=== PATIENT | female | born 1990 | race African-American/Black ===

== ENCOUNTER → 2021-03-27 | Outpatient (CLI) | payer OTHER ==
--- NOTE | 2021-03-27 16:30 | RAD ---
CT of the sinuses without contrast HISTORY: Possible sinusitis. Possible turbinate hypertrophy/inflammation COMPARISON: None Technique: Multidetector CT imaging of the paranasal sinuses performed without contrast. FINDINGS: Noncontrast enhanced evaluation of the globes and orbits is unremarkable. No acute fluid le vels within the paranasal sinuses are identified. No significant mucosal thickening within the parana mia sinuses are identified. No hypertrophic or erosive osseous changes are identified. Ostiomeatal un its appear to be patent bilaterally. Visualized intracranial contents are unremarkable. IMPRESSION: No evidence of acute or chronic sinusitis is identified CT DOSING PQRS STATEMENT: One or more of the following individualized dose reduction techniques were utilized for this examinat ion: 1. Automated exposure control 2. Adjustment of the mA and/or kV according to patient size 3. Use of iterative reconstruction technique Electronically signed by: Petar Melo MD (03/27/2021 4:27 PM) [id number]
== END ==
LOC: CT 14:42
PROVIDERS: ATTEND Otolaryngology
DX: J34.3 Hypertrophy of nasal turbinates (principal); R51.9 Headache, unspecified
CPT/HCPCS: 70486

== ENCOUNTER 2021-05-24 13:27 | Emergency (ER) | payer OTHER ==
[~2021-05-24] VITALS: Ht 157.5 cm; Wt 71.3 kg
[2021-05-24 13:46] VITALS: BP 119/71
[2021-05-24] MEDS ORDERED: KETOROLAC 15 MG/ML VIAL. IVP ONE (14:15)
[2021-05-24] MEDS ORDERED: IV NORMAL SALINE 1,000ML 1,000 ML IV ONE (14:15)
[2021-05-24] MEDS ORDERED: METOCLOPRAMIDE HCL 10 MG/2 ML VIAL. IVP ONE (14:15)
[2021-05-24 14:31] LABS: BASO # 0.1 x10^3/uL (0.0-0.2); BASO % 1 % (0-3); EOS # 0.1 x10^3/uL (0.0-0.7); EOS % 1 % (0-3); HEMATOCRIT 38.8 % (36.0-47.0); HEMOGLOBIN 13.2 g/dL (12.0-15.5); LYMPH # 2.3 x10^3/uL (1.0-4.8); LYMPH % 34 % (24-48); MEAN CORPUSCULAR HEMOGLOBIN 30 pg (25-35); MEAN CORPUSCULAR HGB CONC 34 g/dL (31-37); MEAN CORPUSCULAR VOLUME 89 fL (79-100); MONO # 0.5 x10^3/uL (0.0-1.1); MONO % 7 % (0-9); NEUT # 3.9 x10^3uL (1.8-7.7); NEUT % 57 % (31-73); PLATELET COUNT 232 x10^3/uL (140-400); RED BLOOD COUNT 4.38 x10^6/uL (3.50-5.40); RED CELL DISTRIBUTION WIDTH 13.2 % (11.5-14.5); WHITE BLOOD COUNT 6.8 x10^3/uL (4.0-11.0)
--- NOTE | 2021-05-24 14:41 | RAD ---
EXAM: Abdomen and pelvis CT without intravenous contrast. HISTORY: Left flank pain. TECHNIQUE: Computed tomographic images of the abdomen and pelvis were obtained without contrast. Mult iplanar reformatting was performed. *One or more of the following individualized dose reduction techniques were utilized for this examina tion: 1. Automated exposure control. 2. Adjustment of the mA and/or kV according to patient size. 3. Use of iterative reconstruction technique. COMPARISON: None. FINDINGS: Evaluation of the lower thorax is unremarkable. No hepatic lesion is seen. The stomach is d istended with recently ingested bolus. The gallbladder, pancreas, spleen and adrenal glands are unrem arkable. There is no nephroureterolithiasis or hydronephrosis. No solid or cystic lesion is seen on t his noncontrast exam. The urinary bladder wall is thickened, likely due to relative under distention. The appendix is absent. There is moderate colonic stool. There is a small amount of pelvic free flui d, a nonspecific finding. The uterus is absent. There is diastasis of the ventral abdominal wall musc ulature at the level of the umbilicus. There is no suspicious osseous lesion. IMPRESSION: 1. No evidence of nephrolithiasis or hydronephrosis. 2. Small amount of nonspecific pelvic free fluid. Electronically signed by: Gaby Ledezma MD (05/24/2021 2:39 PM) [id number]
[2021-05-24 14:44] LABS: CREATININE 0.9 mg/dL (0.6-1.0); GFR 87.8; POTASSIUM 4.5 mmol/L (3.5-5.1)
[2021-05-24 14:45] LABS: BILIRUBIN,URINE NEG (NEG); CLARITY,URINE CLEAR; COLOR,URINE YELLOW; GLUCOSE,URINE NEG (NEG); NITRITE,URINE NEG (NEG); UROBILINOGEN,URINE 0.2 mg/dL (0.2 mg/dL)
[2021-05-24 14:49] LABS: ALBUMIN 4.3 g/dL (3.4-5.0); ALBUMIN/GLOBULIN RATIO 1.2 (1.0-1.7); TOTAL BILIRUBIN 0.8 mg/dL (0.2-1.0); TOTAL PROTEIN 7.9 g/dL (6.4-8.2)
[2021-05-24 14:53] LABS: BACTERIA,URINE 0 /HPF (0-FEW); RBC,URINE 0 /HPF (0-2); SQUAMOUS EPITHELIAL CELL,UR OCC /LPF; WBC,URINE 0 /HPF (0-4)
[2021-05-24] MEDS ORDERED: ORPH-16 PO (15:24)
--- NOTE | 2021-05-24 15:26 | PHYS DOC ---
Past History Past Medical History: Anxiety, Fibromyalgia, Migraines, P.I.D. Additional Past Medical Histor: PTSD Past Surgical History: Hysterectomy (With unilateral oophorectomy) Additional Past Surgical Histo: Ventral hernia repair, multiple laparoscopies Smoking: Non-smoker Alcohol Use: None Drug Use: None General Adult EDM: Chief Complaint: BACK PAIN - NO INJURY HPI: HPI: Codie is a 30 year old female who is here due to throbbing lower left back pain. She states that the pain began suddenly this morning while driving and has been worsening ever since. She describes the pain as sharp and throbbing. She also reports polyuria today. Denies pain or discomfort while urinating. She denies fever or any other significant pain at this time. The patient also mentions waking up each morning with stiff hands. Patient denies any trauma. History of hysterectomy. Review of Systems: Review of Systems: Constitutional: Denies fever or chills Eyes: Denies redness or eye pain HENT: Denies nasal congestion or sore throat Respiratory: Denies cough or shortness of breath Cardiovascular: Denies chest pain or palpitations GI: Denies abdominal pain, nausea, or vomiting : Reports polyuria; Denies dysuria or hematuria Musculoskeletal: Reports left lower back pain; denies joint pains Integument: Denies rash or skin lesions Neurologic: Denies headache, focal weakness or sensory changes Complete systems were reviewed and found to be within normal limits, except as documented in this note. Current Medications: Current Meds: Current Medications Medications (Trade) Dose Ordered Sig/[facility] Start Time Stop Time Status Last Admin Dose Admin Ketorolac Tromethamine (Toradol 15mg Vial) 15 mg 1X ONCE 05/24/21 14:15 05/24/21 14:54 DC 05/24/21 14:15 15 MG Metoclopramide HCl (Reglan Vial) 10 mg 1X ONCE 05/24/21 14:15 05/24/21 14:54 DC 05/24/21 14:15 10 MG Sodium Chloride 1,000 ml @ 1,000 mls/hr 1X ONCE 05/24/21 14:15 05/24/21 15:14 05/24/21 14:15 1,000 MLS/HR Allergies: Allergies: Allergies Coded Allergies Type Severity Reaction Last Updated Verified No Known Drug Allergies 05/24/21 No Physical Exam: PE: Constitutional: Well developed, well nourished, in mild distress due to back pain HENT: Normocephalic, atraumatic Eyes: Conjunctiva normal, no discharge Neck: Normal range of motion, no tenderness, supple Lungs & Thorax: No respiratory distress, equal chest rise and fall Abdomen: Soft, no tenderness, no guarding/rebound tenderness/distention Skin: Warm, dry, no erythema, no rash Back: Left lower back pain that is sensitive to palpation, no midline tenderness Extremities: No tenderness, ROM intact, no edema Neurologic: Alert and oriented X 3, normal motor function Psychologic: Affect normal, judgment normal Current Patient Data: Labs: Laboratory Tests Test 05/24/21 13:16 05/24/21 14:28 White Blood Count 6.8 x10^3/uL (4.0-11.0) Red Blood Count 4.38 x10^6/uL (3.50-5.40) Hemoglobin 13.2 g/dL (12.0-15.5) Hematocrit 38.8 % (36.0-47.0) Mean Corpuscular Volume 89 fL (79-100) Mean Corpuscular Hemoglobin 30 pg (25-35) Mean Corpuscular Hemoglobin Concent 34 g/dL (31-37) Red Cell Distribution Width 13.2 % (11.5-14.5) Platelet Count 232 x10^3/uL (140-400) Neutrophils (%) (Auto) 57 % (31-73) Lymphocytes (%) (Auto) 34 % (24-48) Monocytes (%) (Auto) 7 % (0-9) Eosinophils (%) (Auto) 1 % (0-3) Basophils (%) (Auto) 1 % (0-3) Neutrophils # (Auto) 3.9 x10^3uL (1.8-7.7) Lymphocytes # (Auto) 2.3 x10^3/uL (1.0-4.8) Monocytes # (Auto) 0.5 x10^3/uL (0.0-1.1) Eosinophils # (Auto) 0.1 x10^3/uL (0.0-0.7) Basophils # (Auto) 0.1 x10^3/uL (0.0-0.2) Sodium Level 143 mmol/L (136-145) Potassium Level 4.5 mmol/L (3.5-5.1) Chloride Level 104 mmol/L (98-107) Carbon Dioxide Level 30 mmol/L (21-32) Anion Gap 9 (6-14) Blood Urea Nitrogen 11 mg/dL (7-20) Creatinine 0.9 mg/dL (0.6-1.0) Estimated GFR (Cockcroft-Gault) 87.8 BUN/Creatinine Ratio 12 (6-20) Glucose Level 90 mg/dL (70-99) Calcium Level 9.0 mg/dL (8.5-10.1) Total Bilirubin 0.8 mg/dL (0.2-1.0) Aspartate Amino Transferase (AST) 26 U/L (15-37) Alanine Aminotransferase (ALT) 20 U/L (14-59) Alkaline Phosphatase 75 U/L (46-116) Total Protein 7.9 g/dL (6.4-8.2) Albumin 4.3 g/dL (3.4-5.0) Albumin/Globulin Ratio 1.2 (1.0-1.7) Lipase 146 U/L (73-393) Urine Collection Type Unknown Urine Color Yellow Urine Clarity Clear Urine pH 7.0 Urine Specific [place] 1.015 Urine Protein Neg (NEG-TRACE) Urine Glucose (UA) Neg mg/dL (NEG) Urine Ketones (Stick) Neg mg/dL (NEG) Urine Blood Neg (NEG) Urine Nitrite Neg (NEG) Urine Bilirubin Neg (NEG) Urine Urobilinogen Dipstick 0.2 mg/dL (0.2 mg/dL) Urine Leukocyte Esterase Neg (NEG) Urine RBC 0 /HPF (0-2) Urine WBC 0 /HPF (0-4) Urine Squamous Epithelial Cells Occ /LPF Urine Bacteria 0 /HPF (0-FEW) Vital Signs: Vital Signs Date Time Temp Pulse Resp B/P (MAP) Pulse Ox O2 Delivery O2 Flow Rate FiO2 05/24/21 13:46 98.8 84 18 119/71 (87) 100 Room Air Radiology/Procedures: Radiology/Procedures: PROCEDURE: CT ABDOMEN PELVIS WO CONTRAST EXAM: Abdomen and pelvis CT without intravenous contrast. HISTORY: Left flank pain. TECHNIQUE: Computed tomographic images of the abdomen and pelvis were obtained without contrast. Multiplanar reformatting was performed. *One or more of the following individualized dose reduction techniques were utilized for this examination: 1. Automated exposure control. 2. Adjustment of the mA and/or kV according to patient size. 3. Use of iterative reconstruction technique. COMPARISON: None. FINDINGS: Evaluation of the lower thorax is unremarkable. No hepatic lesion is seen. The stomach is distended with recently ingested bolus. The gallbladder, pancreas, spleen and adrenal glands are unremarkable. There is no nephroureter olithiasis or hydronephrosis. No solid or cystic lesion is seen on this noncontrast exam. The urinary bladder wall is thickened, likely due to relative under distention. The appendix is absent. There is moderate colonic stool. There is a small amount of pelvic free fluid, a nonspecific finding. The uterus is absent. There is diastasis of the ventral abdominal wall musculature at the level of the umbilicus. There is no suspicious osseous lesion. IMPRESSION: 1. No evidence of nephrolithiasis or hydronephrosis. 2. Small amount of nonspecific pelvic free fluid. Electronically signed by: Gaby Ledezma MD (05/24/2021 2:39 PM) [id number] Heart Score: C/O Chest Pain: N/A Course & Med Decision Making: Course & Med Decision Making Pertinent Labs and Imaging studies reviewed. (See chart for details) Patient presents with left flank pain. Given presentation, kidney stone vs pyelonephritis was suspected. A CT abdomen/pelvis without contrast was obtained. Results were negative for nephrolithiasis or hydronephrosis. Labs obtained and posted to chart. UA without signs of infection or microscopic hematuria. BUN/creatinine stable. White count normal. Patient reported feeling well enough to go home and was discharged. Patient stable for discharge with outpatient follow-up with PCP. Discussed findings and plan with patient, who acknowledges understanding and agreement. [place] Disclaimer: Lo Disclaimer: This electronic medical record was generated, in whole or in part, using a voice recognition dictation system. Departure Departure: Impression: Primary Impression: Left flank pain Disposition: HOME / SELF CARE / HOMELESS Condition: STABLE Referrals: KIMBERLY CHAVEZ APRN (PCP) Patient Instructions: Flank Pain, [id number] Additional Instructions: Take over the counter Tylenol and/or Ibuprofen for pain or discomfort. Scripts Orphenadrine Citrate (ORPHENADRINE CITRATE) 100 Mg Tablet.er 1 TAB PO BID PRN for MUSCLE PAIN, #14 TAB 0 Refills Prov: TAHIRA MUNGUIA DO 05/24/21 TAHIRA MUNGUIA DO May 24, 2021 15:25
== END 2021-05-24 15:36 | disposition home or self-care (01) ==
LOC: ER 13:27
DX: R10.9 Unspecified abdominal pain (principal); M54.5 Low back pain; R35.8 Other polyuria; F41.9 Anxiety disorder, unspecified; M79.7 Fibromyalgia; G43.909 Migraine, unspecified, not intractable, without status migrainosus; Z90.710 Acquired absence of both cervix and uterus
CPT/HCPCS: 36415; 74176; 80053; 81001; 83690; 85025; 96361; 96374; 96375; 99284; J1885; J2765; J7030